=== PATIENT | female | born 1980 | race African-American/Black ===

== ENCOUNTER 2016-11-29 12:45 | Outpatient (RCR) | payer OTHER | END 2016-11-29 16:07 | disposition still patient (30) | LOC: WSPT 12:45 | DX: M54.5 Low back pain (principal) | CPT/HCPCS: G8981-GP; G8982-GP ==

== ENCOUNTER 2018-01-13 18:23 | Outpatient (CLI) | payer OTHER ==
[~2018-01-13] VITALS: Ht 152.4 cm; Wt 83.6 kg
[2018-01-13 18:30] VITALS: BP 138/74; PULSE 98
[2018-01-13 18:50] VITALS: BP 132/74; PULSE 108
[2018-01-13 19:00] VITALS: BP 126/66; PULSE 103
[2018-01-13 19:15] VITALS: BP 126/70; PULSE 105
[2018-01-14 00:24] VITALS: BP 138/74; PULSE 98; TEMP 98.9
== END 2018-01-13 20:00 | disposition home or self-care (01) ==
LOC: LDRO 18:23
DX: O99.413 Diseases of the circulatory system complicating pregnancy, third trimester (principal); R03.0 Elevated blood-pressure reading, without diagnosis of hypertension; Z3A.38 38 weeks gestation of pregnancy

== ENCOUNTER 2018-01-20 09:55 | Inpatient (IN) | payer OTHER ==
[~2018-01-20] VITALS: Ht 152.4 cm; Wt 83.6 kg
[2018-01-21] VITALS (9 sets, daily range): BP systolic 122–158; BP diastolic 58–96; PULSE 93–108; TEMP 97.8–98.8
[2018-01-21 20:26] LABS: BASO # 0.1 (0.0-0.2); BASO % 0.7 % (0.0-2.0); EOS # 0.1 (0.0-0.7); EOS % 1.4 % (0-4.0); GRAN # 4.8 (1.4-6.5); GRAN % 59.6 % (42.2-75.2); HEMOGLOBIN 11.2 g/dl (12.5-16.0); LYMPH # 2.1 (1.2-3.4); LYMPH % 26.4 % (20.0-51.0); MEAN CELL VOLUME 86 fl (80.0-100.0); MEAN CORPUSCULAR HEMOGLOBIN 27 pg (27.0-31.0); MEAN CORPUSCULAR HGB CONC 32 g/dl (33.0-37.0); MEAN PLATELET VOLUME 12.1 fl (7.4-10.4); MONO # 0.9 (0.1-0.6); PLATELET COUNT 227 K/mm3 (130-400); RED BLOOD COUNT 4.14 M/mm3 (4.10-5.30); REDCELL DISTRIBUTION WIDTH-CV 16.4 % (11.5-14.5)
[2018-01-21 20:29] LABS: HEMATOCRIT 35.6 % (37.0-47.0)
[2018-01-21 21:24] LABS: COLLECTION METHOD CLEAN CATCH
[2018-01-21] MEDS ORDERED: NEXIUM 20MG20 MG PO (21:36)
[2018-01-21] MEDS ORDERED: BENADRYL25 M2 PO (21:36)
[2018-01-21] MEDS ORDERED: CLARITIN 1010 MG/TAB PO (21:36)
[2018-01-21 21:37] LABS: GRANULAR CAST >12 /lpf; MUCOUS Present /lpf; PH 6 (5-8); URINE APPEARANCE Clear; URINE BACTERIA Rare /hpf; URINE BILIRUBIN Negative (NEGATIVE); URINE BLOOD 1+ (NEGATIVE); URINE COLOR Yellow; URINE GLUCOSE Negative (NEGATIVE); URINE KETONE Negative (NEGATIVE); URINE LEUKOCYTE ESTERASE Negative (NEGATIVE); URINE NITRATE Negative (NEGATIVE); URINE PROTEIN(semi-quant) 2+ (NEGATIVE); URINE RBC 0-2 /hpf; URINE UROBILINOGEN Negative (NEGATIVE); URINE WBC 0-2 /hpf
[2018-01-21] MEDS ORDERED: PRENA1 CHEW1 CT1 PO (21:37)
[2018-01-21 21:38] LABS: BILIRUBIN,TOTAL 0.2 mg/dL (0.0-1.0); CALCIUM 8.4 mg/dL (8.4-10.2); CREATININE, serum 0.67 mg/dL (0.52-1.25); TOTAL PROTEIN 6.2 gm/dL (6.4-8.2)
[2018-01-22] VITALS (74 sets, daily range): BP systolic 92–1128; BP diastolic 49–105; PULSE 72–125; TEMP 97.9–98.8
[2018-01-22 22:21] LABS: HEMOGLOBIN 9.7 g/dl (12.5-16.0)
[2018-01-23] VITALS: BP 137/56; PULSE 125
[2018-01-23 04:15] VITALS: BP 129/70; PULSE 114
[2018-01-23 07:00] VITALS: BP 114/68; PULSE 76; TEMP 97.8
[2018-01-23 08:15] LABS: HEMATOCRIT 26.6 % (37.0-47.0); HEMOGLOBIN 8.4 g/dl (12.5-16.0)
[2018-01-23 15:46] VITALS: BP 132/78; PULSE 84; TEMP 98.1
[2018-01-23 20:40] VITALS: BP 139/84; PULSE 110; TEMP 98.8
[2018-01-24 07:58] LABS: HEMATOCRIT 24.8 % (37.0-47.0); HEMOGLOBIN 7.9 g/dl (12.5-16.0)
[2018-01-24 08:16] VITALS: BP 130/75; PULSE 101; TEMP 98.4
[2018-01-24 16:07] VITALS: BP 134/67; PULSE 104; TEMP 98.1
[2018-01-24 19:30] VITALS: BP 133/73; PULSE 110; TEMP 98.9
[2018-01-25 08:56] VITALS: BP 144/78; PULSE 114; TEMP 98
== END 2018-01-25 10:55 | disposition home or self-care (01) | DRG 765 ==
LOC: LDR → OB 01-21 19:11
PROVIDERS: Obstetrics & Gynecology
PROC: 3E0P7VZ Introduction of Hormone into Female Reproductive, Via Natural or Artificial Opening (ICD-10-PCS; 2018-01-21)
PROC: 3E033VJ Introduction of Other Hormone into Peripheral Vein, Percutaneous Approach (ICD-10-PCS; 2018-01-21)
PROC: 10907ZC Drainage of Amniotic Fluid, Therapeutic from Products of Conception, Via Natural or Artificial Opening (ICD-10-PCS; 2018-01-21)
PROC: 10D00Z1 Extraction of Products of Conception, Low, Open Approach (ICD-10-PCS; principal; 2018-01-22)
DX: O14.04 Mild to moderate pre-eclampsia, complicating childbirth (principal); D62 Acute posthemorrhagic anemia; O32.4XX0 Maternal care for high head at term, not applicable or unspecified; Z3A.39 39 weeks gestation of pregnancy; Z37.0 Single live birth; O77.0 Labor and delivery complicated by meconium in amniotic fluid; O34.13 Maternal care for benign tumor of corpus uteri, third trimester; D25.9 Leiomyoma of uterus, unspecified; O99.02 Anemia complicating childbirth
CPT/HCPCS: J0690; J1885; J2175; J2405; J2590; J2795; J3010; J7120